=== PATIENT | male | born 1960 | race Caucasian/White ===

== ENCOUNTER 2020-08-11 10:22 | Outpatient (CLI) | payer MEDICARE, OTHER ==
[~2020-08-11 10:22] MED LIST: None per pt
== END 2020-08-11 23:59 | disposition home or self-care (01) ==
LOC: WOUND 10:22
PROVIDERS: ATTEND Podiatrist Foot & Ankle Surgery
DX: L97.312 Non-pressure chronic ulcer of right ankle with fat layer exposed (principal); L97.522 Non-pressure chronic ulcer of other part of left foot with fat layer exposed; L97.512 Non-pressure chronic ulcer of other part of right foot with fat layer exposed; I10 Essential (primary) hypertension; Z87.891 Personal history of nicotine dependence
CPT/HCPCS: 11042; 97597

== ENCOUNTER 2020-08-18 08:54 | Outpatient (CLI) | payer MEDICARE | END 2020-08-18 23:59 | disposition home or self-care (01) | LOC: WOUND 08:54 | PROVIDERS: ATTEND Podiatrist Foot & Ankle Surgery | DX: L97.312 Non-pressure chronic ulcer of right ankle with fat layer exposed (principal); L97.522 Non-pressure chronic ulcer of other part of left foot with fat layer exposed; L97.512 Non-pressure chronic ulcer of other part of right foot with fat layer exposed; L30.8 Other specified dermatitis; I87.2 Venous insufficiency (chronic) (peripheral); I10 Essential (primary) hypertension; Z87.891 Personal history of nicotine dependence | CPT/HCPCS: 97597 ==

== ENCOUNTER → 2020-08-25 | Outpatient (CLI) | payer MEDICARE | END | disposition home or self-care (01) | LOC: WOUND 12:50 | PROVIDERS: ATTEND Podiatrist Foot & Ankle Surgery | DX: L97.312 Non-pressure chronic ulcer of right ankle with fat layer exposed (principal); L97.512 Non-pressure chronic ulcer of other part of right foot with fat layer exposed; L30.8 Other specified dermatitis; I87.2 Venous insufficiency (chronic) (peripheral); I10 Essential (primary) hypertension; Z87.891 Personal history of nicotine dependence | CPT/HCPCS: 11042 ==

== ENCOUNTER → 2020-09-08 | Outpatient (CLI) | payer MEDICARE | END | disposition home or self-care (01) | LOC: WOUND 13:47 | PROVIDERS: ATTEND Podiatrist Foot & Ankle Surgery | DX: I87.311 Chronic venous hypertension (idiopathic) with ulcer of right lower extremity (principal); L97.312 Non-pressure chronic ulcer of right ankle with fat layer exposed; L97.512 Non-pressure chronic ulcer of other part of right foot with fat layer exposed; L30.8 Other specified dermatitis; I87.2 Venous insufficiency (chronic) (peripheral); I10 Essential (primary) hypertension; Z87.891 Personal history of nicotine dependence | CPT/HCPCS: 97597 ==

== ENCOUNTER → 2020-09-15 | Outpatient (CLI) | payer MEDICARE | END | disposition home or self-care (01) | LOC: WOUND 13:52 | PROVIDERS: ATTEND Podiatrist Foot & Ankle Surgery | DX: I87.311 Chronic venous hypertension (idiopathic) with ulcer of right lower extremity (principal); L97.312 Non-pressure chronic ulcer of right ankle with fat layer exposed; L97.512 Non-pressure chronic ulcer of other part of right foot with fat layer exposed; L30.8 Other specified dermatitis; Z87.891 Personal history of nicotine dependence | CPT/HCPCS: 97597 ==

== ENCOUNTER → 2020-09-22 | Outpatient (CLI) | payer MEDICARE | END | disposition home or self-care (01) | LOC: WOUND 10:19 | PROVIDERS: ATTEND Podiatrist Foot & Ankle Surgery | DX: I87.331 Chronic venous hypertension (idiopathic) with ulcer and inflammation of right lower extremity (principal); L97.312 Non-pressure chronic ulcer of right ankle with fat layer exposed; L97.512 Non-pressure chronic ulcer of other part of right foot with fat layer exposed; Z87.891 Personal history of nicotine dependence | CPT/HCPCS: 97597 ==

== ENCOUNTER → 2020-09-29 | Outpatient (CLI) | payer MEDICARE | END | disposition home or self-care (01) | LOC: WOUND 10:24 | PROVIDERS: ATTEND Podiatrist Foot & Ankle Surgery | DX: I87.331 Chronic venous hypertension (idiopathic) with ulcer and inflammation of right lower extremity (principal); L97.312 Non-pressure chronic ulcer of right ankle with fat layer exposed; Z87.891 Personal history of nicotine dependence | CPT/HCPCS: 97597 ==

== ENCOUNTER → 2020-10-06 | Outpatient (CLI) | payer MEDICARE | END | disposition home or self-care (01) | LOC: WOUND 09:09 | PROVIDERS: ATTEND Podiatrist Foot & Ankle Surgery | DX: I87.331 Chronic venous hypertension (idiopathic) with ulcer and inflammation of right lower extremity (principal); L97.312 Non-pressure chronic ulcer of right ankle with fat layer exposed; L84 Corns and callosities; Z87.891 Personal history of nicotine dependence | CPT/HCPCS: 11042 ==

== ENCOUNTER 2020-10-13 09:40 | Outpatient (CLI) | payer MEDICARE | END 2020-10-13 23:59 | disposition home or self-care (01) | LOC: WOUND 09:40 | PROVIDERS: ATTEND Podiatrist Foot & Ankle Surgery | DX: I87.331 Chronic venous hypertension (idiopathic) with ulcer and inflammation of right lower extremity (principal); L97.312 Non-pressure chronic ulcer of right ankle with fat layer exposed; L84 Corns and callosities; Z87.891 Personal history of nicotine dependence | CPT/HCPCS: 97597 ==

== ENCOUNTER → 2020-10-27 | Outpatient (CLI) | payer MEDICARE | END | disposition home or self-care (01) | LOC: WOUND 09:50 | PROVIDERS: ATTEND Podiatrist Foot & Ankle Surgery | DX: I87.331 Chronic venous hypertension (idiopathic) with ulcer and inflammation of right lower extremity (principal); L97.512 Non-pressure chronic ulcer of other part of right foot with fat layer exposed; L97.312 Non-pressure chronic ulcer of right ankle with fat layer exposed; L97.322 Non-pressure chronic ulcer of left ankle with fat layer exposed; L03.115 Cellulitis of right lower limb; Z87.891 Personal history of nicotine dependence | CPT/HCPCS: 97597 ==

== ENCOUNTER 2020-11-10 09:41 | Outpatient (CLI) | payer MEDICARE | END 2020-11-10 23:59 | disposition home or self-care (01) | LOC: WOUND 09:41 | PROVIDERS: ATTEND Podiatrist Foot & Ankle Surgery | DX: I87.333 Chronic venous hypertension (idiopathic) with ulcer and inflammation of bilateral lower extremity (principal); L97.512 Non-pressure chronic ulcer of other part of right foot with fat layer exposed; L97.312 Non-pressure chronic ulcer of right ankle with fat layer exposed; L97.322 Non-pressure chronic ulcer of left ankle with fat layer exposed; L03.115 Cellulitis of right lower limb; Z87.891 Personal history of nicotine dependence | CPT/HCPCS: 97597 ==

== ENCOUNTER → 2020-11-24 | Outpatient (CLI) | payer MEDICARE | END | disposition home or self-care (01) | LOC: WOUND 09:00 | PROVIDERS: ATTEND Podiatrist Foot & Ankle Surgery | DX: I87.333 Chronic venous hypertension (idiopathic) with ulcer and inflammation of bilateral lower extremity (principal); L97.312 Non-pressure chronic ulcer of right ankle with fat layer exposed; L97.322 Non-pressure chronic ulcer of left ankle with fat layer exposed; L97.511 Non-pressure chronic ulcer of other part of right foot limited to breakdown of skin; L84 Corns and callosities; L03.115 Cellulitis of right lower limb; Z87.891 Personal history of nicotine dependence | CPT/HCPCS: 97597 ==